=== PATIENT | female | born 1980 | race Caucasian/White ===

== ENCOUNTER 2022-02-19 17:21 | Emergency (ER) | payer MEDICAID, OTHER ==
[2022-02-19 17:41] LABS: BASOPHILS % (AUTO) 0.1 %; HCT - HEMATOCRIT 43.9 % (37.0-47.0); HGB - HEMOGLOBIN 14.4 g/dL (12.0-16.0); LYMPHOCYTES # (AUTO) 1.1 10^3/uL (1.5-3.5); LYMPHOCYTES % (AUTO) 6.9 %; MEAN CORPUSCULAR HEMOGLOBIN 30.1 pg (27.0-31.0); MEAN CORPUSCULAR HGB CONC 32.8 g/dL (32.0-36.0); MEAN CORPUSCULAR VOLUME 91.8 fL (81.0-99.0); MEAN PLATELET VOLUME 8.9 fL (7.9-10.8); MONOCYTES # (AUTO) 0.5 10^3/uL (0.0-1.0); MONOCYTES % (AUTO) 3.2 %; NEUTROPHILS # (AUTO) 14.4 10^3/uL (1.5-6.6); NEUTROPHILS % (AUTO) 89.4 %; PLT - PLATELET COUNT 330 10^3/uL (130-450); RED BLOOD COUNT 4.78 10^6/uL (4.20-5.40); RED CELL DISTRIBUTION WIDTH 13.6 % (12.0-15.0); WHITE BLOOD COUNT 16.1 x10^3/uL (4.8-10.8)
--- NOTE | 2022-02-19 17:47 | ED Physician Documentation ---
History of Present Illness - Stated complaint Stated Complaint: ABD PX, CANT URINATE - Chief complaint Chief Complaint: Abd Pain - Additonal information Additional information: History provided by patient. Reliable historian. 42-year-old female presents emergency department for 2 days of upper and lower abdominal discomfort, vomiting and difficulty urinating. She reports that it simply "dribbles out." She does not feel she fully empties her bladder. She denies dysuria and does not feel that this is a urinary tract infection. She does have some posterior flank pain, especially on the right. No fevers. She has been constipated for 3 days. She reports last seeing a doctor in 2019. She is noted to be modestly hypertensive here. States she takes no medications for blood pressure or diabetes and does not carry a diagnosis of such. Past surgical history is a only. She retains all her abdominal organs Review of Systems Constitutional: denies: Fever, Chills Cardiac: reports: Reviewed and negative Respiratory: reports: Reviewed and negative GI: reports: Abdominal Pain, Vomiting, Constipation. denies: Diarrhea, Hematemesis, Bloody / black stool : reports: Unable to Void. 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 - Present Medications Home Medications: Ambulatory Orders Medication Instructions Recorded Confirmed HYDROcod/ACETAM 5/325 [Vicodin 1 - 2 ea PO Q6H PRN #15 tablet 12/18/13 5/325] hydroCHLOROthiazide 12.5 mg PO DAILY 12/18/13 12/18/13 [Hydrochlorothiazide] - Allergies Allergies/Adverse Reactions: Allergies Allergy/AdvReac Type Severity Reaction Status Date / Time No Known Drug Allergies Allergy Verified 12/18/13 01:49 - Social History Does the pt smoke?: No Smoking Status: Never smoker Does the pt drink ETOH?: No Does the pt have substance abuse?: No - Immunizations Immunizations are current?: Yes - POLST Patient has POLST: No PD ED PE NORMAL - General General: Alert and oriented X 3, No acute distress. No: Well developed/nourished (Morbidly obese) - HEENT HEENT: Atraumatic, Moist mucous membranes - Neck Neck: Supple, no meningeal sign, No adenopathy - Cardiac Cardiac: RRR, No murmur - Respiratory Respiratory: No respiratory distress, Clear bilaterally - Abdomen Abdomen: Normal bowel sounds, Soft. No: Non tender (Distended abdomen. Generally tender, though RUQ and suprapubic region are focal. Abdominal exam is quite limited due to body habitus. Posterior lower CVA tenderness present) - Back Back: No: No CVA TTP (Bilateral lower CVA tenderness) - Derm Derm: Normal color, Warm and dry - Neuro Neuro: Alert and oriented X 3, porcelain buildup assistant 2-12 intact Eye Opening: Spontaneous Motor: Obeys Commands Verbal: Oriented GCS Score: 15 Results - Vitals Vitals: Vital Signs - 24 hr 02/19/22 02/19/22 02/19/22 17:29 19:32 21:00 Temperature 37.1 C 36.6 C Heart Rate 100 107 H 99 Respiratory 18 18 18 Rate Blood Pressure 190/100 H 180/111 H 165/113 H O2 Saturation 99 88 L 98 If not protocol 1 : Oxygen Flow, liters/minute Oxygen O2 Source Nasal cannula - Labs Labs: Laboratory Tests 02/19/22 02/19/22 02/19/22 17:36 17:36 17:36 WBC 16.1 H RBC 4.78 Hgb 14.4 Hct 43.9 MCV 91.8 MCH 30.1 MCHC 32.8 RDW 13.6 Plt Count 330 MPV 8.9 Neut # (Auto) 14.4 H Lymph # (Auto) 1.1 L Meagher # (Auto) 0.5 Eos # (Auto) 0.0 Baso # (Auto) 0.0 Absolute Nucleated RBC 0.00 Nucleated RBC % 0.0 Sodium 133 L Potassium 3.5 Chloride 96 L Carbon Dioxide 25 Anion Gap 12.0 BUN 7 Creatinine 0.7 Estimated GFR (MDRD) 91 Glucose 216 H Lactic Acid Calcium 8.7 Total Bilirubin 1.5 H AST 120 H ALT 276 H Alkaline Phosphatase 153 H Lactate Dehydrogenase Total Protein 7.7 Albumin 4.0 Globulin 3.7 Albumin/Globulin Ratio 1.1 Lipase 328 H HCG, Quant < 0.60 Urine Color Urine Clarity Urine pH Ur Specific [place] Urine Protein Urine Glucose (UA) Urine Ketones Urine Occult Blood Urine Nitrite Urine Bilirubin Urine Urobilinogen Ur Leukocyte Esterase Ur Microscopic Review Urine Culture Comments Nasal Adenovirus (PCR) Nasal B. parapertussis DNA (PCR) Nasal Coronavir 229E PCR Nasal Coronavir HKU1 PCR Nasal Coronavir NL63 PCR Nasal Coronavir OC43 PCR Nasal Enterovir/Rhinovir PCR Nasal Influenza B PCR Nasal Influenza A PCR Nasal Parainfluen 1 PCR Nasal Parainfluen 2 PCR Nasal Parainfluen 3 PCR Nasal Parainfluen 4 PCR Nasal RSV (PCR) Nasal B.pertussis DNA PCR Nasal C.pneumoniae (PCR) Kenn Human Metapneumo PCR Nasal M.pneumoniae (PCR) Nasal SARS-CoV-2 (PCR) 02/19/22 02/19/22 02/19/22 17:36 18:18 19:10 WBC RBC Hgb Hct MCV MCH MCHC RDW Plt Count MPV Neut # (Auto) Lymph # (Auto) Meagher # (Auto) Eos # (Auto) Baso # (Auto) Absolute Nucleated RBC Nucleated RBC % Sodium Potassium Chloride Carbon Dioxide Anion Gap BUN Creatinine Estimated GFR (MDRD) Glucose Lactic Acid 2.0 Calcium Total Bilirubin AST ALT Alkaline Phosphatase Lactate Dehydrogenase 302 H Total Protein Albumin Globulin Albumin/Globulin Ratio Lipase HCG, Quant Urine Color YELLOW Urine Clarity CLEAR Urine pH 6.5 Ur Specific [place] 1.010 Urine Protein TRACE Urine Glucose (UA) NEGATIVE Urine Ketones 40 H Urine Occult Blood TRACE-INTA Urine Nitrite NEGATIVE Urine Bilirubin NEGATIVE Urine Urobilinogen 0.2 (NORMAL) Ur Leukocyte Esterase NEGATIVE Ur Microscopic Review NOT INDICATED Urine Culture Comments NOT INDICATED Nasal Adenovirus (PCR) Nasal B. parapertussis DNA (PCR) Nasal Coronavir 229E PCR Nasal Coronavir HKU1 PCR Nasal Coronavir NL63 PCR Nasal Coronavir OC43 PCR Nasal Enterovir/Rhinovir PCR Nasal Influenza B PCR Nasal Influenza A PCR Nasal Parainfluen 1 PCR Nasal Parainfluen 2 PCR Nasal Parainfluen 3 PCR Nasal Parainfluen 4 PCR Nasal RSV (PCR) Nasal B.pertussis DNA PCR Nasal C.pneumoniae (PCR) Kenn Human Metapneumo PCR Nasal M.pneumoniae (PCR) Nasal SARS-CoV-2 (PCR) 02/19/22 19:50 WBC RBC Hgb Hct MCV MCH MCHC RDW Plt Count MPV Neut # (Auto) Lymph # (Auto) Meagher # (Auto) Eos # (Auto) Baso # (Auto) Absolute Nucleated RBC Nucleated RBC % Sodium Potassium Chloride Carbon Dioxide Anion Gap BUN Creatinine Estimated GFR (MDRD) Glucose Lactic Acid Calcium Total Bilirubin AST ALT Alkaline Phosphatase Lactate Dehydrogenase Total Protein Albumin Globulin Albumin/Globulin Ratio Lipase HCG, Quant Urine Color Urine Clarity Urine pH Ur Specific [place] Urine Protein Urine Glucose (UA) Urine Ketones Urine Occult Blood Urine Nitrite Urine Bilirubin Urine Urobilinogen Ur Leukocyte Esterase Ur Microscopic Review Urine Culture Comments Nasal Adenovirus (PCR) NOT DETECTED Nasal B. parapertussis DNA (PCR) NOT DETECTED Nasal Coronavir 229E PCR NOT DETECTED Nasal Coronavir HKU1 PCR NOT DETECTED Nasal Coronavir NL63 PCR NOT DETECTED Nasal Coronavir OC43 PCR NOT DETECTED Nasal Enterovir/Rhinovir PCR NOT DETECTED Nasal Influenza B PCR NOT DETECTED Nasal Influenza A PCR NOT DETECTED Nasal Parainfluen 1 PCR NOT DETECTED Nasal Parainfluen 2 PCR NOT DETECTED Nasal Parainfluen 3 PCR NOT DETECTED Nasal Parainfluen 4 PCR NOT DETECTED Nasal RSV (PCR) NOT DETECTED Nasal B.pertussis DNA PCR NOT DETECTED Nasal C.pneumoniae (PCR) NOT DETECTED Kenn Human Metapneumo PCR NOT DETECTED Nasal M.pneumoniae (PCR) NOT DETECTED Nasal SARS-CoV-2 (PCR) NOT DETECTED - Rads (name of study) CT abd w Radiology: Prelim report reviewed ( ), Final report received (Rim calcified gallstone in the distal gallbladder neck without CT evidence of acute cholecystitis. Hepatomegaly/hepatic steatosis. Minimal stranding surrounding the pancreatic head which may be related to acute pancreatitis. No obstructive uropathy.) abd US Radiology: Final report received (Increased hepatic echogenicity likely represents steatosis. Cholelithiasis without evidence of cholecystitis. Mild biliary ductal dilation. Recommend correlation clinical for possible biliary obstruction with MRCP) PD Medical Decision Making - ED course Complexity details: reviewed results, re-evaluated patient, considered differential, d/w patient, d/w it solutions sales consultant (Fam) ED course: This is a 42-year-old female that presents to the emergency department for evaluation of 2 days upper and lower abdominal pain with associated vomiting as well as difficulty urinating though no dysuria. She has had no fevers. Denies any pertinent past surgical history. On presentation she appears well though she is morbidly obese. Initially in the emergency department given the urinary concerns we were concerned that she could have a urinary tract infection. We were unable to complete a bladder scan given her body habitus however a Sanchez catheter placed at the bedside immediately drained 300 mils of clear urine without findings of infection on urinalysis. We subsequently completed a CBC and electrolytes. My interpretation of the findings is that we do note a modest leukocytosis of 16,000. She also has some significant LFT abnormalities with an elevation in her T bili, AST ALT and alk phos as well as an elevated lipase of over 300. This raised clinical concern for acute cholecystitis versus acute pancreatitis or gallstone pancreatitis. Her abdominal exam was limited secondary to body habitus but subsequent CT imaging showed a large stone in the neck of the gallbladder but no secondary findings of acute cholecystitis. There was some inflammation around the pancreas indicating acute pancreatitis. Subsequent ultrasound showed no findings of cholecystitis however there was mild ductal dilation and biliary obstruction could not be ruled out. Given the leukocytosis, LFT abnormalities and clinical history this patient was started on Zosyn 4.5 g every 6 hours based on body weight. She is also administered 2 L of crystalloid here in the emergency department. I briefly discussed this case with our on-call surgeon Dr. Calvert. Unfortunately due to the body habitus she does not feel that the patient would be appropriate for surgical intervention here at [facility]. She feels that the patient likely has acute cholecystitis versus gallstone pancreatitis or an obstructed bile duct/choledocholithiasis. She does recommend MRCP for further evaluation as well as continuing the IV fluids and Zosyn already initiated. [facility] are working with [facility] to secure an appropriate bed. She will continue to board in the emergency department until then. An MRCP has been ordered for the a.m. The patient has been ordered a clear liquid diet and appropriate analgesia. She remains hemodynamically stable otherwise. 2140: I spoken with the [facility] transfer center. They have been given updated clinical information and will begin the search for an appropriate bed. MRCP is pending in the morning. Patient will be signed out to my nighttime colleague to follow-up on any acute overnight events and I will return tomorrow to continue her care. Departure - Departure Disposition: 02 Transfer Acute Care Hosp Clinical Impression: Pancreatitis, acute Qualifiers: Pancreatitis type: unspecified pancreatitis type Acute pancreatitis complication: unspecified Qualified Code(s): K85.90 - Acute pancreatitis without necrosis or infection, unspecified
[2022-02-19 18:02] LABS: ALBUMIN/GLOBULIN RATIO 1.1 (1.0-2.2); BILIRUBIN,TOTAL 1.5 mg/dL (0.2-1.0); CALCIUM 8.7 mg/dL (8.5-10.3); CREATININE 0.7 mg/dL (0.4-1.0); POTASSIUM 3.5 mmol/L (3.5-5.0); TOTAL PROTEIN 7.7 g/dL (6.7-8.2)
[2022-02-19] MEDS ORDERED: SODIUM CHLORIDE 0.9% 1,000 ML IV STA ×2 (18:28→19:51)
[2022-02-19] MEDS ORDERED: iohexoL-300 100 ML VIAL ONE (18:31)
[2022-02-19] MEDS ORDERED: ONDANSETRON 4 MG/2 ML VIAL IVP STA (18:42)
[2022-02-19] MEDS ORDERED: HYDROmorphone 1 MG/ML CARPUJECT IVP STA (18:42)
[2022-02-19 18:44] LABS: BILIRUBIN,URINE NEGATIVE (NEGATIVE); GLUCOSE, URINE (UA) NEGATIVE (NEGATIVE); KETONES,URINE (UA) 40 mg/dL (NEGATIVE); LEUKOCYTE ESTERASE, URINE NEGATIVE (NEGATIVE); NITRITE,URINE NEGATIVE (NEGATIVE); OCCULT BLOOD,URINE TRACE-INTA (NEGATIVE); PH,URINE 6.5 PH (5.0-7.5); PROTEIN,URINE TRACE mg/dL (NEGATIVE); UROBILINOGEN,URINE 0.2 (NORMAL) E.U./dL (NORMAL)
[2022-02-19 18:47] LABS: CLARITY,URINE CLEAR (CLEAR)
[2022-02-19] MEDS ORDERED: iohexoL-300 100 ML VIAL IVP ONE (19:10)
--- NOTE | 2022-02-19 19:32 | CT Report ---
PROCEDURE: ABDOMEN/PELVIS W INDICATIONS: difficulty urinating; elevated lipase CONTRAST: 100ml omni 300 TECHNIQUE: After the administration of weight appropriate dose of intravenous contrast, 5 mm thick sections acqu ired from the diaphragms to the symphysis. 5 mm thick coronal and sagittal reformats were acquired. For radiation dose reduction, the following was used: automated exposure control, adjustment of mA and/or kV according to patient size. COMPARISON: 12/18/2013. FINDINGS: Image quality: Study limited due to patient scanning characteristics and body habitus. Overall, diagn ostic. ABDOMEN: Lung bases: Moderate linear and patchy opacities of the bilateral lung bases likely representing atel ectasis. Heart size is normal. Solid organs: Liver is enlarged with diffuse hypoattenuation relative to the spleen. The spleen is no rmal in size and enhancement. Gallbladder is partially decompressed. Rim calcified gallstone noted i n the distal gallbladder neck. Biliary system is non dilated. Pancreas enhances normally. Suggesti on of mild peripancreatic stranding. No adrenal nodules. Kidneys demonstrate normal size and enhance ment, without hydronephrosis. Peritoneum and bowel: Bowel loops demonstrate normal wall thickness and caliber. No free fluid or a ir. The appendix is not definitively visualized. No evidence for acute inflammatory changes. No evid ence for bowel obstruction. Nodes and vessels: No retroperitoneal or mesenteric adenopathy by size criteria. Aorta and inferior vena cava are normal in size. Miscellaneous: No ventral hernias. PELVIS: Genitourinary: Urinary bladder is decompressed by a Sanchez catheter. Small locules of air noted in the antidependent portions of the bladder likely from Sanchez placement. No evidence suggest significant p erivesicular stranding. Miscellaneous: No inguinal hernias or adenopathy. Bones: No suspicious bony lesions. No acute vertebral body compression fractures. IMPRESSION: 1. Rim calcified gallstone in the distal gallbladder neck without CT evidence of acute cholecystitis. 2. Hepatomegaly with findings compatible with moderate hepatic steatosis. 3. Minimal stranding surrounding the pancreatic head which may be related to acute pancreatitis. 4. No evidence for obstructive uropathy. Urinary bladder decompressed by Asnchez catheter. A few locule s of air in the bladder likely from Sanchez placement. However, recommend clinical and laboratory corre lation to exclude underlying infectious uropathy. 5. Moderate linear and patchy opacity of the bilateral lung bases favored to represent atelectasis. E bozena airspace disease/pneumonia not excluded if clinically appropriate. Reviewed by: Greg Raymundo MD on 02/19/2022 7:31 PM PST Approved by: Greg Raymundo MD on 02/19/2022 7:31 PM PST Station ID: [id number]
--- NOTE | 2022-02-19 20:06 | Ultrasound Report ---
PROCEDURE: Abdomen Limited INDICATIONS: abnormal LFT's; elevated bili TECHNIQUE: Real-time focused scanning was performed of the abdomen, with image documentation. COMPARISON: CT abdomen pelvis 02/19/2022 FINDINGS: The liver is enlarged, measuring up to approximately 24.3 cm in dimension. There is increase echogenicity consistent with fatty infiltration. Multiple gallstones are demonstrated in the gallbladder without wall thickening, pericholecystic flui d, or sonographic Pate's sign. No definite intrahepatic biliary ductal dilatation. The visualized common bile duct is mildly enlarge d, measuring up to 0.8 cm. Pancreas was not well seen sonographically. Right kidney measures 9.4 cm. No hydronephrosis. IMPRESSION: 1. Increased hepatic echogenicity likely represents steatosis. 2. Cholelithiasis without evidence of cholecystitis. 3. Mild biliary ductal dilatation. Recommend correlation clinically for possible biliary obstruction. If there is clinical suspicion for choledocholithiasis, further evaluation may obtained with MRCP. Reviewed by: Andres Moore MD on 02/19/2022 8:05 PM PST Approved by: Andres Moore MD on 02/19/2022 8:05 PM PST Station ID: [id number]
[2022-02-19] MEDS: PIPERACILLIN/TAZOBACTAM 4.5 GM in SODIUM CHLORIDE 0.9% MINIBAG 100 ML IV SCH (20:10)
[2022-02-19 20:54] LABS: B. PARAPERTUSSIS- RESP PCR PAN NOT DETECTED; B. PERTUSSIS- RESP PCR PANEL NOT DETECTED; C. PNEUMONIAE- RESP PCR PANEL NOT DETECTED; CORONAVIRUS 229E-RESP PCR NOT DETECTED; CORONAVIRUS HKU1-RESP PCR NOT DETECTED; CORONAVIRUS NL63-RESP PCR NOT DETECTED; CORONAVIRUS OC43-RESP PCR NOT DETECTED; HUMAN METAPNEUMOVIRUS NOT DETECTED; INFLUENZA A- RESP PCR PANEL NOT DETECTED; INFLUENZA B - RESP PCR PANEL NOT DETECTED; M. PNEUMONIAE- RESP PCR PANEL NOT DETECTED; PARAINFLUENZA VIRUS 1 NOT DETECTED; PARAINFLUENZA VIRUS 2 NOT DETECTED; PARAINFLUENZA VIRUS 3 NOT DETECTED; PARAINFLUENZA VIRUS 4 NOT DETECTED; RHINOVIRUS/ENTEROVIRUS NOT DETECTED; RSV- RESP PCR PANEL NOT DETECTED; SARS-CoV-2 -RESP PCR PANEL NOT DETECTED
[2022-02-20] MEDS ORDERED: HYDROmorphone 1 MG/ML CARPUJECT IVP STA ×3 (03:09→17:53)
[2022-02-20 07:16] LABS: BASOPHILS % (AUTO) 0.2 %; EOSINOPHILS % (AUTO) 0.1 %; HGB - HEMOGLOBIN 13.2 g/dL (12.0-16.0); LYMPHOCYTES # (AUTO) 1.1 10^3/uL (1.5-3.5); LYMPHOCYTES % (AUTO) 7.2 %; MEAN CORPUSCULAR HEMOGLOBIN 30.2 pg (27.0-31.0); MEAN CORPUSCULAR HGB CONC 32.2 g/dL (32.0-36.0); MEAN CORPUSCULAR VOLUME 93.8 fL (81.0-99.0); MEAN PLATELET VOLUME 8.4 fL (7.9-10.8); MONOCYTES # (AUTO) 0.7 10^3/uL (0.0-1.0); MONOCYTES % (AUTO) 4.8 %; NEUTROPHILS # (AUTO) 13.1 10^3/uL (1.5-6.6); NEUTROPHILS % (AUTO) 86.8 %; PLT - PLATELET COUNT 267 10^3/uL (130-450); RED BLOOD COUNT 4.37 10^6/uL (4.20-5.40); RED CELL DISTRIBUTION WIDTH 13.8 % (12.0-15.0)
[2022-02-20 07:35] LABS: ALBUMIN 3.6 g/dL (3.2-5.5); BILIRUBIN,TOTAL 1.3 mg/dL (0.2-1.0); CALCIUM 8.1 mg/dL (8.5-10.3); CREATININE 0.6 mg/dL (0.4-1.0); POTASSIUM 3.3 mmol/L (3.5-5.0); TOTAL PROTEIN 7.2 g/dL (6.7-8.2)
[2022-02-20] MEDS ORDERED: GADOBUTROL 15 MMOL/15 ML VIAL ONE (07:37)
[2022-02-20] MEDS: PIPERACILLIN/TAZOBACTAM 4.5 GM in SODIUM CHLORIDE 0.9% MINIBAG 100 ML IV SCH ×4 (08:55→23:30)
[2022-02-20] MEDS: oxyCODONE 5 MG TABLET PO PRN ×2 (08:55→15:11)
--- NOTE | 2022-02-20 08:56 | ED Physician Documentation ---
ED Addendum - Addendum Addendum: 02/20/22 08:55 The patient had liquid breakfast apparently some Jell-O and water or juice. She was having some increased pain upper abdomen into her back following that. No nausea or vomiting. We can give her another dose of pain medication. We are waiting MRCP this morning to better define if there is a bile duct blockage or not. This would allow better disposition for the patient.
[2022-02-20] MEDS: ONDANSETRON 4 MG/2 ML VIAL IVP PRN (09:08)
[2022-02-20] MEDS: ENOXAPARIN 40 MG/0.4 ML SYRINGE SUBQ SCH (09:08)
--- NOTE | 2022-02-20 12:37 | ED Physician Documentation ---
History of Present Illness - Stated complaint Stated Complaint: ABD PX, CANT URINATE - Chief complaint Chief Complaint: Abd Pain - Additonal information Additional information: I have seen and personally evaluated the patient who continues to board in the emergency department pending transfer to tertiary care facility with GI and surgical capabilities for possible acute cholecystitis versus gallstone pancreatitis versus choledocholithiasis. In short 42-year-old female presented yesterday with 2 days of right-sided abdominal pain nausea and vomiting. Work-up in the emergency department included a CBC and electrolytes which showed a mild leukocytosis but elevated T bili, lipase and LFTs. Initial CT scan showed stone near the neck of the gallbladder. Abdominal ultrasound was limited given body habitus but did not show findings of acute cholecystitis however biliary obstruction could not be ruled out. Yesterday i briefly spoke on the phone with Dr. Otto who recommended an MRCP to evaluate for choledocholithiasis. The patient went to the MRI scanner this morning but unfortunately due to body habitus she was too large to tolerate the MRI scan and it was abated. Today her white count is marginally improved at 15,000. However, her bilirubin, and LFTs as well as lipase are all appropriately downtrending. She is on a clear liquid nonfat diet. Pain is being controlled with oxycodone. I have evaluated the patient's vital signs. She remains afebrile. She vacillates between normal tensive as well as hypertensive. No worrisome tachycardia or hypotension. On clinical exam she continues to have tenderness in the right upper quadrant of her abdomen though no guarding or rebound. I did again speak with Dr. Otto on the phone today. Given the paucity of beds in the region if transfer is ultimately not is able to be accommodated as a last repeat sort we could consider a medical discharge as long as patient had well- controlled pain, was tolerating a nonfat diet, and had appropriate decrease in her lipase and LFTs to no more than 2 times normal. However it would be critical that she have her gallbladder removed in the future, at a facility with the capability of managing a patient of her bariatic size. If discharged she should be on a full NO FAT det. However ideally with any concerns of gallstone pancreatitis the gallbladder was removed on the first admission. I have spoken with patient about the bed situation and she continues to be willing to wait for possible transfer. She will remain on the Zosyn for now. 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: section - Present Medications Home Medications: Ambulatory Orders Medication Instructions Recorded Confirmed HYDROcod/ACETAM 5/325 [Vicodin 1 - 2 ea PO Q6H PRN #15 tablet 12/18/13 5/325] hydroCHLOROthiazide 12.5 mg PO DAILY 12/18/13 12/18/13 [Hydrochlorothiazide] - Allergies Allergies/Adverse Reactions: Allergies Allergy/AdvReac Type Severity Reaction Status Date / Time No Known Drug Allergies Allergy Verified 12/18/13 01:49 - Social History Does the pt smoke?: No Smoking Status: Never smoker Does the pt drink ETOH?: No Does the pt have substance abuse?: No - Immunizations Immunizations are current?: Yes - POLST Patient has POLST: No Results - Vitals Vitals: Vital Signs - 24 hr 02/19/22 02/19/22 02/19/22 17:29 19:32 21:00 Temperature 37.1 C 36.6 C Heart Rate 100 107 H 99 Respiratory 18 18 18 Rate Blood Pressure 190/100 H 180/111 H 165/113 H O2 Saturation 99 88 L 98 If not protocol 1 : Oxygen Flow, liters/minute 02/19/22 02/20/22 02/20/22 23:00 01:10 03:47 Temperature 37.0 C Heart Rate 105 H 102 H 103 H Respiratory 18 18 16 Rate Blood Pressure 154/121 H 158/112 H 159/84 H O2 Saturation 98 96 94 If not protocol 1 1.5 : Oxygen Flow, liters/minute 02/20/22 02/20/22 05:51 12:10 Temperature Heart Rate 100 105 H Respiratory 16 20 Rate Blood Pressure 180/72 H 168/98 H O2 Saturation 95 93 If not protocol 2 : Oxygen Flow, liters/minute Oxygen O2 Source Nasal cannula - Labs Labs: Laboratory Tests 02/19/22 02/19/22 02/19/22 17:36 17:36 17:36 WBC 16.1 H RBC 4.78 Hgb 14.4 Hct 43.9 MCV 91.8 MCH 30.1 MCHC 32.8 RDW 13.6 Plt Count 330 MPV 8.9 Neut # (Auto) 14.4 H Lymph # (Auto) 1.1 L [place] # (Auto) 0.5 Eos # (Auto) 0.0 Baso # (Auto) 0.0 Absolute Nucleated RBC 0.00 Nucleated RBC % 0.0 Sodium 133 L Potassium 3.5 Chloride 96 L Carbon Dioxide 25 Anion Gap 12.0 BUN 7 Creatinine 0.7 Estimated GFR (MDRD) 91 Glucose 216 H Lactic Acid Calcium 8.7 Total Bilirubin 1.5 H AST 120 H ALT 276 H Alkaline Phosphatase 153 H Lactate Dehydrogenase Total Protein 7.7 Albumin 4.0 Globulin 3.7 Albumin/Globulin Ratio 1.1 Lipase 328 H HCG, Quant < 0.60 Urine Color Urine Clarity Urine pH Ur Specific [place] Urine Protein Urine Glucose (UA) Urine Ketones Urine Occult Blood Urine Nitrite Urine Bilirubin Urine Urobilinogen Ur Leukocyte Esterase Ur Microscopic Review Urine Culture Comments Nasal Adenovirus (PCR) Nasal B. parapertussis DNA (PCR) Nasal Coronavir 229E PCR Nasal Coronavir HKU1 PCR Nasal Coronavir NL63 PCR Nasal Coronavir OC43 PCR Nasal Enterovir/Rhinovir PCR Nasal Influenza B PCR Nasal Influenza A PCR Nasal Parainfluen 1 PCR Nasal Parainfluen 2 PCR Nasal Parainfluen 3 PCR Nasal Parainfluen 4 PCR Nasal RSV (PCR) Nasal B.pertussis DNA PCR Nasal C.pneumoniae (PCR) [place] Human Metapneumo PCR Nasal M.pneumoniae (PCR) Nasal SARS-CoV-2 (PCR) 02/19/22 02/19/22 02/19/22 17:36 18:18 19:10 WBC RBC Hgb Hct MCV MCH MCHC RDW Plt Count MPV Neut # (Auto) Lymph # (Auto) [place] # (Auto) Eos # (Auto) Baso # (Auto) Absolute Nucleated RBC Nucleated RBC % Sodium Potassium Chloride Carbon Dioxide Anion Gap BUN Creatinine Estimated GFR (MDRD) Glucose Lactic Acid 2.0 Calcium Total Bilirubin AST ALT Alkaline Phosphatase Lactate Dehydrogenase 302 H Total Protein Albumin Globulin Albumin/Globulin Ratio Lipase HCG, Quant Urine Color YELLOW Urine Clarity CLEAR Urine pH 6.5 Ur Specific [place] 1.010 Urine Protein TRACE Urine Glucose (UA) NEGATIVE Urine Ketones 40 H Urine Occult Blood TRACE-INTA Urine Nitrite NEGATIVE Urine Bilirubin NEGATIVE Urine Urobilinogen 0.2 (NORMAL) Ur Leukocyte Esterase NEGATIVE Ur Microscopic Review NOT INDICATED Urine Culture Comments NOT INDICATED Nasal Adenovirus (PCR) Nasal B. parapertussis DNA (PCR) Nasal Coronavir 229E PCR Nasal Coronavir HKU1 PCR Nasal Coronavir NL63 PCR Nasal Coronavir OC43 PCR Nasal Enterovir/Rhinovir PCR Nasal Influenza B PCR Nasal Influenza A PCR Nasal Parainfluen 1 PCR Nasal Parainfluen 2 PCR Nasal Parainfluen 3 PCR Nasal Parainfluen 4 PCR Nasal RSV (PCR) Nasal B.pertussis DNA PCR Nasal C.pneumoniae (PCR) [place] Human Metapneumo PCR Nasal M.pneumoniae (PCR) Nasal SARS-CoV-2 (PCR) 02/19/22 02/20/22 02/20/22 19:50 07:12 07:12 WBC 15.0 H RBC 4.37 Hgb 13.2 Hct 41.0 MCV 93.8 MCH 30.2 MCHC 32.2 RDW 13.8 Plt Count 267 MPV 8.4 Neut # (Auto) 13.1 H Lymph # (Auto) 1.1 L [place] # (Auto) 0.7 Eos # (Auto) 0.0 Baso # (Auto) 0.0 Absolute Nucleated RBC 0.00 Nucleated RBC % 0.0 Sodium 134 L Potassium 3.3 L Chloride 95 L Carbon Dioxide 30 Anion Gap 9.0 BUN 6 Creatinine 0.6 Estimated GFR (MDRD) 109 Glucose 163 H Lactic Acid Calcium 8.1 L Total Bilirubin 1.3 H AST 51 H ALT 201 H Alkaline Phosphatase 125 H Lactate Dehydrogenase Total Protein 7.2 Albumin 3.6 Globulin 3.6 Albumin/Globulin Ratio 1.0 Lipase 105 H HCG, Quant Urine Color Urine Clarity Urine pH Ur Specific [place] Urine Protein Urine Glucose (UA) Urine Ketones Urine Occult Blood Urine Nitrite Urine Bilirubin Urine Urobilinogen Ur Leukocyte Esterase Ur Microscopic Review Urine Culture Comments Nasal Adenovirus (PCR) NOT DETECTED Nasal B. parapertussis DNA (PCR) NOT DETECTED Nasal Coronavir 229E PCR NOT DETECTED Nasal Coronavir HKU1 PCR NOT DETECTED Nasal Coronavir NL63 PCR NOT DETECTED Nasal Coronavir OC43 PCR NOT DETECTED Nasal Enterovir/Rhinovir PCR NOT DETECTED Nasal Influenza B PCR NOT DETECTED Nasal Influenza A PCR NOT DETECTED Nasal Parainfluen 1 PCR NOT DETECTED Nasal Parainfluen 2 PCR NOT DETECTED Nasal Parainfluen 3 PCR NOT DETECTED Nasal Parainfluen 4 PCR NOT DETECTED Nasal RSV (PCR) NOT DETECTED Nasal B.pertussis DNA PCR NOT DETECTED Nasal C.pneumoniae (PCR) NOT DETECTED [place] Human Metapneumo PCR NOT DETECTED Nasal M.pneumoniae (PCR) NOT DETECTED Nasal SARS-CoV-2 (PCR) NOT DETECTED Departure - Departure Disposition: 02 Transfer Acute Care Hosp Clinical Impression: Pancreatitis, acute Qualifiers: Pancreatitis type: unspecified pancreatitis type Acute pancreatitis complication: unspecified Qualified Code(s): K85.90 - Acute pancreatitis without necrosis or infection, unspecified
[2022-02-21] MEDS ORDERED: HYDROmorphone 1 MG/ML CARPUJECT IVP STA (05:06)
[2022-02-21] MEDS ORDERED: HYDROmorphone 1 MG/ML CARPUJECT ONE (05:07)
[2022-02-21 05:10] LABS: BASOPHILS % (AUTO) 0.1 %; EOSINOPHILS # (AUTO) 0.1 10^3/uL (0.0-0.7); EOSINOPHILS % (AUTO) 0.4 %; HCT - HEMATOCRIT 39.6 % (37.0-47.0); HGB - HEMOGLOBIN 12.4 g/dL (12.0-16.0); LYMPHOCYTES # (AUTO) 0.9 10^3/uL (1.5-3.5); LYMPHOCYTES % (AUTO) 6.2 %; MEAN CORPUSCULAR HEMOGLOBIN 29.6 pg (27.0-31.0); MEAN CORPUSCULAR HGB CONC 31.3 g/dL (32.0-36.0); MEAN CORPUSCULAR VOLUME 94.5 fL (81.0-99.0); MEAN PLATELET VOLUME 8.9 fL (7.9-10.8); MONOCYTES # (AUTO) 0.8 10^3/uL (0.0-1.0); MONOCYTES % (AUTO) 5.2 %; NEUTROPHILS # (AUTO) 13.4 10^3/uL (1.5-6.6); NEUTROPHILS % (AUTO) 87.6 %; PLT - PLATELET COUNT 261 10^3/uL (130-450); RED BLOOD COUNT 4.19 10^6/uL (4.20-5.40); RED CELL DISTRIBUTION WIDTH 13.7 % (12.0-15.0); WHITE BLOOD COUNT 15.3 x10^3/uL (4.8-10.8)
[2022-02-21] MEDS: PIPERACILLIN/TAZOBACTAM 4.5 GM in SODIUM CHLORIDE 0.9% MINIBAG 100 ML IV SCH ×4 (06:14→23:59)
[2022-02-21] MEDS: PANTOPRAZOLE 40 MG TABLET PO SCH (06:30)
--- NOTE | 2022-02-21 07:31 | CONSULTATION NOTE ---
Referring Provider Name of Referring Provider:: ED provider (Shelby Reyes) Consult Date: 02/21/22 (asked for official consult today, provided guidance 02/19, 02/20) Chief Complaint - Chief Complaint Chief Complaint: abdominal pain History of Present Illness - History Obtained From Records Reviewed: yes History obtained from: patient, chart, ED providers - History of Present Illness HPI Comment/Other: 42-year-old F with 2 day history of constant, worsening, upper and lower abdominal discomfort, associated with vomiting and difficulty urinating. She does have some posterior right flank pain. No fevers. She has been constipated for 3 days. She feels like her pain is better today, though not gone. She is tolerating clear liquids. She denies any significant past medical history aside from obesity and her only past surgical history is a . 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: section - POLST Patient has POLST: No Meds/Allgy - Home Medications Home Medications: Ambulatory Orders Medication Instructions Recorded Confirmed HYDROcod/ACETAM 5/325 [Vicodin 1 - 2 ea PO Q6H PRN #15 tablet 12/18/13 5/325] hydroCHLOROthiazide 12.5 mg PO DAILY 12/18/13 12/18/13 [Hydrochlorothiazide] - Allergies Allergies/Adverse Reactions: Allergies Allergy/AdvReac Type Severity Reaction Status Date / Time No Known Drug Allergies Allergy Verified 12/18/13 01:49 Review of Systems - Constitutional Constitutional: reports: Other (A complete 10 point ROS is negative except for HPI and PMH.) Exam - Vital Signs Reviewed Vital Signs: Yes Vital Signs: Vital Signs x48h Pulse Resp BP Pulse Ox O2 Flow Rate 02/21/22 04:00 80 18 187/108 H 96 2 02/21/22 02:00 90 16 183/87 H 95 02/21/22 00:00 90 14 190/105 H 95 2 - Physical Exam General Appearance: positive: No acute distress, Alert Eyes Bilateral: positive: Normal inspection, PERRL, EOMI ENT: positive: ENT inspection nml, Pharynx nml, No signs of dehydration, Other (NC in place) Neck: positive: Nml inspection Respiratory: positive: Chest non-tender, No respiratory distress, Breath sounds nml Cardiovascular: positive: Regular rate & rhythm, No murmur Peripheral Pulses: positive: 2+ Abdomen: positive: Tenderness (mild epigastric and RUQ), Other (morbidly obese). negative: Guarding, Rebound Skin: positive: No rash Extremities: positive: Non-tender, Nml appearance Neurologic/Psychiatric: positive: Oriented x3, CN's nml (2-12) Comments/Other: 02/19 RUQ sono: 1. Increased hepatic echogenicity likely represents steatosis. 2. Cholelithiasis without evidence of cholecystitis. 3. Mild biliary ductal dilatation. 02/19 CT abd/pelvis: 1. Rim calcified gallstone in the distal gallbladder neck without CT evidence of acute cholecystitis. 2. Hepatomegaly with findings compatible with moderate hepatic steatosis. 3. Minimal stranding surrounding the pancreatic head which may be related to acute pancreatitis. 4. No evidence for obstructive uropathy. Urinary bladder decompressed by Sanchez catheter. A few locules of air in the bladder likely from Sanchez placement. However, recommend clinical and laboratory correlation to exclude underlying infectious uropathy. 5. Moderate linear and patchy opacity of the bilateral lung bases favored to represent atelectasis. Early airspace disease/pneumonia not excluded if clinically appropriate. MRCP unsuccessful due to anxiety and patient's body habitus. Conclusion and Plan - Lab Results Laboratory Results 02/21/22 05:00: WBC 15.3 H, RBC 4.19 L, Hgb 12.4, Hct 39.6, MCV 94.5, MCH 29.6, MCHC 31.3 L, RDW 13.7, Plt Count 261, MPV 8.9, Neut # (Auto) 13.4 H, Lymph # (Auto) 0.9 L, [place] # (Auto) 0.8, Eos # (Auto) 0.1, Baso # (Auto) 0.0, Absolute Nucleated RBC 0.00, Nucleated RBC % 0.0 02/20/22 07:12: Sodium 134 L, Potassium 3.3 L, Chloride 95 L, Carbon Dioxide 30, Anion Gap 9.0, BUN 6, Creatinine 0.6, Estimated GFR (MDRD) 109, Glucose 163 H, Calcium 8.1 L, Total Bilirubin 1.3 H, AST 51 H, ALT 201 H, Alkaline Phosphatase 125 H, Total Protein 7.2, Albumin 3.6, Globulin 3.6, Albumin/Globulin Ratio 1.0, Lipase 105 H 02/20/22 07:12: WBC 15.0 H, RBC 4.37, Hgb 13.2, Hct 41.0, MCV 93.8, MCH 30.2, MCHC 32.2, RDW 13.8, Plt Count 267, MPV 8.4, Neut # (Auto) 13.1 H, Lymph # (Auto) 1.1 L, [place] # (Auto) 0.7, Eos # (Auto) 0.0, Baso # (Auto) 0.0, Absolute Nucleated RBC 0.00, Nucleated RBC % 0.0 02/19/22 19:50: Nasal Adenovirus (PCR) NOT DETECTED, Nasal B. parapertussis DNA (PCR) NOT DETECTED, Nasal Coronavir 229E PCR NOT DETECTED, Nasal Coronavir HKU1 PCR NOT DETECTED, Nasal Coronavir NL63 PCR NOT DETECTED, Nasal Coronavir OC43 PCR NOT DETECTED, Nasal Enterovir/Rhinovir PCR NOT DETECTED, Nasal Influenza B PCR NOT DETECTED, Nasal Influenza A PCR NOT DETECTED, Nasal Parainfluen 1 PCR NOT DETECTED, Nasal Parainfluen 2 PCR NOT DETECTED, Nasal Parainfluen 3 PCR NOT DETECTED, Nasal Parainfluen 4 PCR NOT DETECTED, Nasal RSV (PCR) NOT DETECTED, Nasal B.pertussis DNA PCR NOT DETECTED, Nasal C.pneumoniae (PCR) NOT DETECTED, Kenn Human Metapneumo PCR NOT DETECTED, Nasal M.pneumoniae (PCR) NOT DETECTED, Nasal SARS-CoV-2 (PCR) NOT DETECTED 02/19/22 19:10: Lactic Acid 2.0 02/19/22 18:18: Urine Color YELLOW, Urine Clarity CLEAR, Urine pH 6.5, Ur Specific [place] 1.010, Urine Protein TRACE, Urine Glucose (UA) NEGATIVE, Urine Ketones 40 H, Urine Occult Blood TRACE-INTA, Urine Nitrite NEGATIVE, Urine Bilirubin NEGATIVE, Urine Urobilinogen 0.2 (NORMAL), Ur Leukocyte Esterase NEGATIVE, Ur Microscopic Review NOT INDICATED, Urine Culture Comments NOT INDICATED 02/19/22 17:36: Lactate Dehydrogenase 302 H 02/19/22 17:36: HCG, Quant < 0.60 02/19/22 17:36: Sodium 133 L, Potassium 3.5, Chloride 96 L, Carbon Dioxide 25, Anion Gap 12.0, BUN 7, Creatinine 0.7, Estimated GFR (MDRD) 91, Glucose 216 H, Calcium 8.7, Total Bilirubin 1.5 H, AST 120 H, ALT 276 H, Alkaline Phosphatase 153 H, Total Protein 7.7, Albumin 4.0, Globulin 3.7, Albumin/Globulin Ratio 1.1, Lipase 328 H 02/19/22 17:36: WBC 16.1 H, RBC 4.78, Hgb 14.4, Hct 43.9, MCV 91.8, MCH 30.1, MCHC 32.8, RDW 13.6, Plt Count 330, MPV 8.9, Neut # (Auto) 14.4 H, Lymph # (Auto) 1.1 L, [place] # (Auto) 0.5, Eos # (Auto) 0.0, Baso # (Auto) 0.0, Absolute Nucleated RBC 0.00, Nucleated RBC % 0.0 - Diagnostic Imaging Results Diagnostic Imaging Results: positive: Final report reviewed Diagnostic Imaging Results Comments: I personally reviewed the images and reports from the above studies. - Diagnosis Diagnosis: Gallstone pancreatitis, morbid obesity, cholelithiasis - Consultation Note Consultation Note: 42 y/o F with: 1. gallstone pancreatitis, possible cholecystitis - The patient is too uncomfortable to undergo MRCP in our scanner. HIDA not available at our facility. LFT's and lipase trending down, CBD stone may have passed. However, the patient still has some RUQ pain, and persistent leukocytosis. Consider repeat sono. Patient is tolerating clears. - On review of images, sono is greatly limited by body habitus, but suggests choledocholithiasis, and no cholecystitis. CT, history and labs consistent with gallstone pancreatitis. In this setting, once patient is improving, cholecystectomy during the same admission is recommended by the literature and Uptodate. I recommend the patient have this procedure as soon as feasible (if transfer is not possible due to bed limitations at this time). - Unfortunately, the patient's morbid obesity exceeds our facility's ability to care for her (she cannot have surgery in this facility). I recommend transfer to higher level of care for further workup, cholecystectomy +/- ERCP. Until she has surgery, she should be on a NO fat diet. She is at risk for recurrent pancreatitis.
[2022-02-21 08:26] LABS: ALBUMIN 3.1 g/dL (3.2-5.5); ALBUMIN/GLOBULIN RATIO 0.8 (1.0-2.2); BILIRUBIN,TOTAL 1.3 mg/dL (0.2-1.0); CALCIUM 7.9 mg/dL (8.5-10.3); CREATININE 0.6 mg/dL (0.4-1.0); POTASSIUM 3.1 mmol/L (3.5-5.0)
[2022-02-21] MEDS: ENOXAPARIN 40 MG/0.4 ML SYRINGE SUBQ SCH (08:49)
[2022-02-21] MEDS: oxyCODONE 5 MG TABLET PO PRN ×3 (08:49→22:39)
[2022-02-21] MEDS ORDERED: POTASSIUM CHLORIDE 20 MEQ TABLET PO STA (11:35)
--- NOTE | 2022-02-21 13:34 | ED Physician Documentation ---
ED Addendum - Addendum Addendum: 02/21/22 13:32 I have personally evaluated the patient who continues to board in the emergency department pending transfer for concerns of acute cholecystitis, versus gallstone pancreatitis versus choledocholithiasis. Due to body habitus the patient was unable to have her MRI completed yesterday. She has been on a clear liquid nonfat diet. She is receiving Zosyn 4.5 g every 6 hours. She has been hypertensive but without fevers or tachycardia. Her abdomen continues to be tender in the right upper quadrant. She did require additional doses of Dilaudid yesterday despite the as needed doses of oxycodone. I have evaluated her labs. Her White count remains mildly elevated at 15 and essentially unchanged. I do note downtrending LFTs, lipase and bilirubin. Given the paucity of beds in the region she will continue to board in the emergency department but I have asked Dr. Otto to evaluate the patient and assist us with a consult note. 1700: Dr. Otto requested a repeat US which showed: Enlarged liver. Hepatic steatosis. Gallstones are present., Bile duct measured 5 mm. At this time clinically it does not appear that the patient has choledocholithiasis. However at 1 point she certainly did have gallstone pancreatitis. I did reevaluate the patient and she had been advanced to a low-fat solid foods diet. She reported that she did not tolerate it well as it caused increased nausea and upper abdominal pain. Clinically this patient Presents with upper abdominal pain and previously elevated liver function test which are downtrending. There is concern for acute cholecystitis though the ultrasound today is not suggestive of that. The persistence in the white count as well as pain after eating does continue to suggest acute gallbladder disease. Patient continues to board in the emergency department pending a bed becoming available. She is not appropriate for surgery here secondary to her bariatric size. However at some point should her gallbladder cool off enough she may be stable for discharge home to follow-up with an appropriate bariatric surgeon for gallbladder removal. 02/21/22 21:39
[2022-02-21] MEDS: ACETAMINOPHEN 500 MG TABLET PO PRN ×2 (14:15→20:23)
--- NOTE | 2022-02-21 17:35 | Ultrasound Report ---
PROCEDURE: Abdomen Limited INDICATIONS: RUQ pain, improving pain TECHNIQUE: Real-time scanning was performed of the right abdomen, with image documentation. COMPARISON: Abdominal ultrasound 02/19/2022. CT abdomen pelvis 02/19/2022. FINDINGS: Liver: Liver is mildly enlarged measuring 22 semisolid length. Increased in echogenicity. Decreased s onographic penetration. Gallbladder: Gallbladder is nondistended. Gallstones are present. No gallbladder wall thickening. No pericholecystic fluid. Negative sonographic Pate sign. Biliary ducts: Intrahepatic bile ducts are non-dilated. Extrahepatic bile duct caliber measures 5 m m. Normal is 6-7 mm or less in diameter, or 10 mm or less post-cholecystectomy. Pancreas: Poorly visualized. Visualized portions of the pancreas are sonographically normal. Tail wa s not seen. Right kidney: Right kidney measures 14.3 cm long. Cortex 1.9 cm. No hydronephrosis.. Miscellaneous: No free abdominal fluid. IMPRESSION: Exam is limited due to body habitus and acoustic windows. Decreased sonographic penetration of the li russ. Liver is enlarged. Hepatic steatosis. Gallstones are present. Reviewed by: Jose Beth MD on 02/21/2022 5:34 PM PST Approved by: Jose Beth MD on 02/21/2022 5:34 PM PST Station ID: [id number]
[2022-02-22] MEDS ORDERED: HYDROmorphone 1 MG/ML CARPUJECT IVP STA (02:08)
[2022-02-22] MEDS: ONDANSETRON 4 MG/2 ML VIAL IVP PRN ×2 (02:22→09:58)
[2022-02-22] MEDS: ACETAMINOPHEN 500 MG TABLET PO PRN (05:44)
[2022-02-22] MEDS: PIPERACILLIN/TAZOBACTAM 4.5 GM in SODIUM CHLORIDE 0.9% MINIBAG 100 ML IV SCH ×2 (05:49→12:08)
[2022-02-22] MEDS: PANTOPRAZOLE 40 MG TABLET PO SCH (06:30)
[2022-02-22] MEDS: ENOXAPARIN 40 MG/0.4 ML SYRINGE SUBQ SCH (08:34)
[2022-02-22 08:48] LABS: BASOPHILS % (AUTO) 0.2 %; EOSINOPHILS # (AUTO) 0.1 10^3/uL (0.0-0.7); EOSINOPHILS % (AUTO) 0.5 %; HCT - HEMATOCRIT 40.2 % (37.0-47.0); HGB - HEMOGLOBIN 12.9 g/dL (12.0-16.0); LYMPHOCYTES # (AUTO) 1.1 10^3/uL (1.5-3.5); LYMPHOCYTES % (AUTO) 8.4 %; MEAN CORPUSCULAR HEMOGLOBIN 29.9 pg (27.0-31.0); MEAN CORPUSCULAR HGB CONC 32.1 g/dL (32.0-36.0); MEAN CORPUSCULAR VOLUME 93.3 fL (81.0-99.0); MEAN PLATELET VOLUME 8.6 fL (7.9-10.8); MONOCYTES # (AUTO) 0.6 10^3/uL (0.0-1.0); MONOCYTES % (AUTO) 4.5 %; NEUTROPHILS # (AUTO) 11.2 10^3/uL (1.5-6.6); PLT - PLATELET COUNT 266 10^3/uL (130-450); RED BLOOD COUNT 4.31 10^6/uL (4.20-5.40); RED CELL DISTRIBUTION WIDTH 13.6 % (12.0-15.0)
[2022-02-22 09:03] LABS: ALBUMIN 3.4 g/dL (3.2-5.5); ALBUMIN/GLOBULIN RATIO 0.8 (1.0-2.2); BILIRUBIN,TOTAL 1.3 mg/dL (0.2-1.0); CALCIUM 8.3 mg/dL (8.5-10.3); CREATININE 0.6 mg/dL (0.4-1.0); POTASSIUM 3.3 mmol/L (3.5-5.0); TOTAL PROTEIN 7.7 g/dL (6.7-8.2)
[2022-02-22 09:27] LABS: ALBUMIN 3.3 g/dL (3.2-5.5); ALBUMIN/GLOBULIN RATIO 0.8 (1.0-2.2); BILIRUBIN,TOTAL 1.2 mg/dL (0.2-1.0); CALCIUM 8.4 mg/dL (8.5-10.3); CREATININE 0.6 mg/dL (0.4-1.0); POTASSIUM 3.2 mmol/L (3.5-5.0); TOTAL PROTEIN 7.6 g/dL (6.7-8.2)
[2022-02-22] MEDS: oxyCODONE 5 MG TABLET PO PRN (09:58)
[2022-02-22] MEDS ORDERED: IBUPROFEN 600 MG TABLET PO STA (12:27)
--- NOTE | 2022-02-22 13:45 | ED Physician Documentation ---
ED Addendum - Addendum Addendum: 02/22/22 13:45 Patient seen and examined at bedside. Briefly 42-year-old woman with evidence of biliary obstruction and morbid obesity. She had a brief episode of pain today but was able to eat today for the first time. The eating did not trigger the pain. She is pain-free now. Her labs continue to improve with her white count, bilirubin, and liver enzymes all trending down. Unfortunately due to size limitations she is not a candidate for MRCP or cholecystectomy here. I left a voicemail with the surgeon at this time for help with disposition. 02/22/22 14:[address] Holley, given the current situation, specifically that she is boarding for transfer to higher level of care but seems to have cleared, probably okay to discharge with follow-up at a bariatric surgery center. Patient is comfortable with this plan. Dr. Miller recommended 2 more days worth of Augmentin. Disposition: Discharged home Condition: Stable
[2022-02-22 14:32] VITALS: BP 188/77
[2022-02-23 04:09] LABS: HBsAG SCREEN Negative (Negative); HCV AB <0.1 s/co ratio (0.0-0.9); HEPATITIS B CORE IGM AB Negative (Negative)
== END 2022-02-22 14:48 | disposition home or self-care (01) ==
LOC: ED 17:21
DX: K85.10 Biliary acute pancreatitis without necrosis or infection (principal); K80.20 Calculus of gallbladder without cholecystitis without obstruction; K76.0 Fatty (change of) liver, not elsewhere classified; E66.01 Morbid (severe) obesity due to excess calories; Z68.43 Body mass index [BMI] 50.0-59.9, adult; Z75.1 Person awaiting admission to adequate facility elsewhere; Z76.4 Other boarder to healthcare facility
CPT/HCPCS: 36415; 74177; 76705; 80053; 81003; 83605; 83615; 83690; 84702; 85025; 86705; 86709; 86803; 87340; 87633; 96361; 96365; 96366; 96372; 96375; 96376; 99284; 99285; A9270; A9585; J1170; J1650; Q9967; 81001; 87086